=== PATIENT | female | born 1995 | race Caucasian/White ===

== ENCOUNTER 2017-05-27 02:12 | Emergency (ER) | payer OTHER ==
[~2017-05-27] VITALS: Ht 160 cm; Wt 73.7 kg
[~2017-05-27 02:12] MED LIST: AMOXICILLIN500 MG PO; BENADRYL50 MG PO; FLOXIN OTIC SOLN5 ML RIGHT EAR; HYDROCODON-ACE1 EAC7 PO; LIDOCAINE20 MG/1 M5 PO; MACROBID100 MG PO; MOTRIN600 MG PO; MOTRIN800 MG PO; NO HOME MEDS; Ortho Tri-Cyclen 28, PO; PEPCID20 MG PO; PREDNISONE50 MG PO; TOBREX5 ML RIGHT EYE; TRAMADOL HCL50 MG PO; ZOFRAN ODT8 MG PO
[2017-05-27] MEDS ORDERED: PREDNISONE20 MG PO (03:39)
[2017-05-27 03:47] VITALS: BP 138/86
== END 2017-05-27 03:47 | disposition home or self-care (01) ==
LOC: EME 02:12
DX: J32.9 Chronic sinusitis, unspecified (principal); F17.200 Nicotine dependence, unspecified, uncomplicated
CPT/HCPCS: 99281; 99284; J7512

== ENCOUNTER 2017-06-02 23:23 | Emergency (ER) | payer OTHER ==
[~2017-06-02] VITALS: Ht 160 cm; Wt 75.9 kg
[~2017-06-02 23:23] MED LIST changes: +PREDNISONE20 MG PO
[2017-06-03] MEDS ORDERED: AMOXICILLIN500 MG PO (00:29)
[2017-06-03] MEDS ORDERED: PREDNISONE20 MG PO (00:30)
[2017-06-03 00:36] VITALS: BP 162/95
== END 2017-06-03 00:37 | disposition home or self-care (01) ==
LOC: EME 23:23
DX: J32.9 Chronic sinusitis, unspecified (principal)
CPT/HCPCS: 99281; 99284; J7512

== ENCOUNTER 2017-09-06 11:30 | Emergency (ER) | payer OTHER ==
[~2017-09-06] VITALS: Ht 160 cm; Wt 74.0 kg
[2017-09-06] MEDS ORDERED: LEVOCETIRIZINE D5 MG PO (13:08)
[2017-09-06] MEDS ORDERED: PEN-VEE K,VEET500 MG PO (13:27)
[2017-09-06] MEDS ORDERED: NAPROSYN500 MG PO (13:27)
[2017-09-06 13:51] VITALS: BP 125/35
== END 2017-09-06 13:53 | disposition home or self-care (01) ==
LOC: EME 11:30
DX: K04.7 Periapical abscess without sinus (principal); K03.81 Cracked tooth; F17.210 Nicotine dependence, cigarettes, uncomplicated
CPT/HCPCS: 99281; 99284